=== PATIENT | female | born 1990 | race Caucasian/White ===

== ENCOUNTER 2018-05-01 14:28 | Inpatient (IN) ==
--- NOTE | 2018-05-01 14:55 | Urology History & Physical ---
Date of Encounter: 05/01/18 Time of Encounter: 14:52 Assessment and Plan (1) Right ureteral stone Current Visit: Yes Status: Acute Patient brought in for admission to the hospital secondary to low blood pressure , fever and pain control. Patient will be taken urgently to the operating room for cystoscopy and right ureteral stent placement with possible removal of right distal ureteral stone. We will start broad-spectrum anabolic's and send blood cultures. (2) Sepsis associated hypotension Current Visit: Yes Status: Acute Start IV fluids. Blood cultures broad-spectrum antibiotics.. History of Present Illness Chief complaint: right flank pain and fever HPI: Ms. Caldera is a 28 year old female who was in the emergency department 3 days ago secondary to severe right-sided flank pain. Patient was discharged home. She arrived to the urology office today secondary to severe right-sided flank pain. Patient was found to have low blood pressure as well as tachycardia as well as a fever. Patient with nausea without vomiting. Past Med Surg Social Fam HX - Past Medical History Medical history: kidney stones Additional medical history: kidney stones Psychiatric history: no psych history - Social History Smoking Status: Former smoker Smokeless Tobacco Status: No Alcohol use: none Drug use: none Medications and Allergies Ondansetron ODT [Zofran ODT] 4 mg SL Q6HR #10 tab.rapdis 03/12/16 [Rx] OxyCODONE/APAP 5/325 [Percocet 5/325 MG] 1 each PO Q6HR PRN #15 tablet 03/12/16 [Rx] Tamsulosin [Flomax] 0.4 mg PO DAILY #14 capsule 03/12/16 [Rx] Loratadine/Pseudophed (12 HR) [Claritin D (12HR)] 1 each PO BID #10 tab.er.12h 06/09/16 [Rx] Magic Mouthwash [Magic Mouthwash BLM] 5 ml PO QID PRN #240 ml 06/09/16 [Rx] Vit Calc,Iron,Folic [ Vitamins] 1 each PO DAILY #90 tablet 10/21 [Rx] Ketorolac [Toradol] 10 mg PO Q6HR PRN #12 tablet 04/28/18 [Rx] Ondansetron ODT [Zofran ODT] 4 mg SL Q4HR PRN #6 tab.rapdis 04/28/18 [Rx] Tamsulosin [Flomax] 0.4 mg PO DAILY #5 cap.er.24h 04/28/18 [Rx] 3 Allergy/AdvReac Type Severity Reaction Status Date / Time No Known Allergies Allergy Verified 11/02/17 18:46 Review of Systems - Constitutional chills, fever(s) - EENT Nose, mouth and throat: no dizziness - Cardiovascular no chest pain - Respiratory no cough - Gastrointestinal abdominal pain, nausea, no vomiting - Musculoskeletal back pain, no muscle weakness - Integumentary no erythema, no lesions, no swelling - Neurological weakness, no confusion, no syncope - Psychiatric no anxiety, no depression - Hematologic/Lymphatic no easy bleeding, no lymphadenopathy - Allergic/Immunologic no throat swelling, no wheezing Exam Temp 102.6 F, HR 102.6 /min, BP 82/50 mm Hg, Ht 5 ft 0 in, Wt 91 lbs, BMI 17.77 Index, Oxygen sat % 98 %, Pain scale 10 1-10. General/Neuological: alert and oriented x 3 Eyes: normal pupils, non-icteric Neck: no lymphadenopathy noted, supple to touch Cardiovascular: RRR, no murmurs Respiratory: normal respiratory effort, clear bilaterally ABD: soft, nontender, no masses palpated, good bowel sounds Back: no pain on percussion bilaterally Skin: no rashes noted Musculoskeletal: normal gait, FROMx4 Urology Results - Labs All other labs normal. - Imaging CT scan - abdomen: image reviewed CT scan - pelvis: image reviewed (Image reviewed which revealed distal right 3- 4 mm ureteral stone)
[2018-05-01] MEDS ORDERED: *HR* FentaNYL (PF) 100 MCG/2 ML VIAL ONE (15:15)
[2018-05-01] MEDS ORDERED: *HR* Midazolam HCl 2 MG/2 ML VIAL ONE (15:16)
[2018-05-01] MEDS ORDERED: Ondansetron 4 MG/2 ML VIAL ONE (15:16)
[2018-05-01] MEDS ORDERED: Lidocaine -MPF 2% 2 ML VIAL ONE (15:16)
[2018-05-01] MEDS ORDERED: *HR* Propofol 200 MG/20 ML VIAL IVP ONE (15:16)
[2018-05-01] MEDS ORDERED: Dexamethasone 4 MG/ML VIAL ONE (15:16)
--- NOTE | 2018-05-01 15:39 | Anesthesia Evaluation PreOp ---
Date of Encounter: 05/01/18 Time of Encounter: 15:35 - Past History Planned Operation: right uteroscopic stone exttraction Cardiac History: Denies any Significant Hx Pulmonary History: Denies Any Significant HX CUSTOMER ENGINEER History: Denies Any Significant HX Other Medical History: Denies Any Significant HX, Renal, Other (anemia) Anesthesia History: No Prior Anesthetic Complications : No Test: Negative Alcohol Use: none Drug use: none Medications and Allergies Ondansetron ODT [Zofran ODT] 4 mg SL Q6HR #10 tab.rapdis 03/12/16 [Rx] Vit Calc,Iron,Folic [ Vitamins] 1 each PO DAILY #90 tablet 10/21 [Rx] Ketorolac [Toradol] 10 mg PO Q6HR PRN #12 tablet 04/28/18 [Rx] Tamsulosin [Flomax] 0.4 mg PO DAILY #5 cap.er.24h 04/28/18 [Rx] 3 Allergy/AdvReac Type Severity Reaction Status Date / Time No Known Allergies Allergy Verified 11/02/17 18:46 - Meds/Allergy Pre-op Review Medications Reviewed: Yes Allergies Reviewed: No Beta Blockers on Current Med List: No Anesthesia Exam Vital Signs - Last 8 Hours Temp Pulse Resp BP Pulse Ox 05/01/18 15:02 97.8 F 107 14 103/71 100 Intake and Output 04/30/18 05/01/18 05/01/18 23:59 07:59 15:59 Intake Total 0 / 0 Output Total 0 / 0 Balance 0 / 0 Intake: Oral 0 / 0 Output: Urine 0 / 0 Other: Weight 41.558 kg Patient Weight 05/01/18 23:59 Weight 41.558 kg Height: 1.52m Weight: 41kg NPO (# of Hours): >8hrs Pain Scale: 5 Pain Scale Used: Numeric (1 - 10) - HEENT Pupil (Motor): Pupils equal Mallampati: II Teeth: Normal Oral Opening: Greater than 3 - CUSTOMER ENGINEER LOC: Oriented CUSTOMER ENGINEER Motor: Normal RUE, Normal LUE, Normal RLE, Normal LLE, Normal Face CUSTOMER ENGINEER Sensory: Normal: RUE, LUE, RLE, LLE, Face - Cardiac Rhythm: Regular - Pulmonary Breath Sounds: left Clear Respiratory Effort: Symmetrical Anesthesia Assess/Plan ASA Score: 2 Modified Lurdes Scale for Level of Consciousness: Cooperative, oriented, and tranquil Anesthetic Plan: General Autologous Blood: No Monitoring Plan: Standard Monitors Recovery Plan: PACU
[2018-05-01] MEDS ORDERED: *HR* OxyCODONE/APAP 5/325 TABLET PO PRN (15:44)
[2018-05-01] MEDS ORDERED: *HR* Promethazine 25 MG/ML VIAL IVP PRN ×2 (15:44→17:04)
[2018-05-01] MEDS ORDERED: cefTRIAXone 1,000 MG in Water for inj. (sterile) 20 ML 10 ML IVP ONE (16:00)
[2018-05-01] MEDS ORDERED: *HR* Morphine 10 MG/ML VIAL ONE (16:13)
[2018-05-01] MEDS ORDERED: Ringers Solution, Lactated 1,000 ML ONE (16:24)
[2018-05-01] MEDS ORDERED: Acetaminophen IV 1,000 MG/100 ML INFUS..BTL IVPB ONE (16:25)
--- NOTE | 2018-05-01 16:32 | Operative Note ---
Date of procedure: 05/01/18 Pre-op diagnosis: right distal ureteral stone Post-op diagnosis: other (no stone found.) Procedure: Right ureteroscopy and right 4.8 x 26 cm ureteral stent placement Anesthesia: VIOLETAA Surgeon: Roque Barrera Was there an phlebotomist medical lab assistant present: No Estimated blood loss (cc): 0 Specimen: none Condition: stable Disposition: PACU Procedure in Detail: Patient was prepped and draped in normal sterile fashion. Timeout procedure performed. I then inserted the semirigid ureteroscope into the patient's bladder. I attempted to cannulate the right ureteral orifice which was unsuccessful. I then placed a sensor wire through this into the right kidney using fluoroscopy. I then dilated the distal ureter using a 8/10 dilation sheath. I then placed the semirigid ureteroscope back into the patient's bladder and was able to visualize the entire right ureter with no stones seen. I then placed a 4.8 x 26 cm stent with good curl seen in the right kidney and in the bladder. Bladder was drained and procedure was ended.
--- NOTE | 2018-05-01 16:53 | Anesthesia Evaluation Post Op ---
Date of Encounter: 05/01/18 Time of Encounter: 16:53 - Vital Signs Vital Signs: Vital Signs/O2 Sat/Glucose, Most Recent Temp Pulse Resp BP Pulse Ox 102.4 F H 90 16 97/60 100 05/01/18 16:50 05/01/18 16:50 05/01/18 16:50 05/01/18 16:50 05/01/18 16:50 - Lungs Lungs: Clear Ascult./Percussion - Airway Airway: Non-obstructed - Cardiovascular Regular Rate, Baseline Rhythm - Mental Status Mental Status: Alert & Oriented, Answers Appropriately - Pain Pain Scale: 0 Pain Scale used: Numeric (1 - 10) - Nausea Vomiting Nausea Vomiting: Not Present - Hydration Hydration: Ice chips Notes: 05/01/18 16:53 naac - Discharge PostOp Status: Transfer Patient to floor
[2018-05-01] MEDS ORDERED: Naloxone 0.4 MG/ML INJ IVP PRN (17:04)
[2018-05-01] MEDS ORDERED: *HR* OxyCODONE Immed Rel 5 MG TABLET PO PRN (17:04)
[2018-05-01] MEDS: 0.9 % Sodium Chloride 1,000 ML IVC SCH (17:47)
[2018-05-02] MEDS: *HR* HYDROcodone/Acet 5/325 mg TABLET PO PRN ×2 (00:37→13:21)
[2018-05-02] MEDS: 0.9 % Sodium Chloride 1,000 ML IVC SCH ×4 (06:10→21:45)
[2018-05-02 06:15] LABS: Hematocrit 31.9 % (35.3-44.9); Immature Granulocytes % 0.5 % (0-4); Lymphocytes # 0.6 K/mcL (0.6-4.6); Lymphocytes % 7.3 %; Mean Corpuscular HGB Conc 34.5 g/dL (31.6-35.5); Mean Corpuscular Hemoglobin 31.3 pg (28.0-33.3); Mean Corpuscular Volume 90.9 fL (83.0-100.0); Mean Platelet Volume 11.4 fL (9.4-12.4); Monocytes # 0.4 K/mcL (0.0-1.3); Monocytes % 5.6 %; Neutrophils # 6.5 K/mcL (1.6-8.9); Platelet Count 111 K/mcL (140-400); Red Blood Count 3.51 M/mcL (3.82-4.97); Red Cell Distribution Width 12.3 % (11.5-14.5); Segmented Neutrophils % 86.6 %
[2018-05-02 06:33] LABS: BUN/Creatinine Ratio 14 (6-26); Blood Urea Nitrogen 8 mg/dL (6-20); Calcium 8.3 mg/dL (8.6-10.3); Carbon Dioxide 23 mEq/L (23-29); Chloride 109 mEq/L (98-107); Glucose 143 mg/dL (70-105); Osmolality,Calculated 285 (280-300); Potassium 3.9 mEq/L (3.5-5.1); Sodium 137 mEq/L (136-145); eGFR For Non-African Americans > 60 (> 60)
--- NOTE | 2018-05-02 08:52 | Urology Progress Note ---
Date of Encounter: 05/02/18 Time of Encounter: 08:50 - Assessment and Plan (1) Right ureteral stone Current Visit: Yes Status: Acute Assessment and plan: Patient without evidence of stone on ureteroscopy. She is status post right ureteral stent placement. Continue with stent at this time. (2) Sepsis associated hypotension Current Visit: Yes Status: Acute Assessment and plan: We will continue with broad-spectrum antibiotics. Plan on continuing with IV Rocephin until at least blood cultures returned preliminarily. Likely discharge tomorrow morning. Progress Note Narrative: Postoperative day 1 from right ureteroscopy and right ureteral stent placement. Patient did well overnight without any fevers. Patient's labs unremarkable at this time. Patient's blood pressure has been on the lower side since surgery. This may be her baseline. Objective Initial Vital Signs Temp Pulse Resp BP Pulse Ox 97.8 F 107 14 103/71 100 05/01/18 15:02 05/01/18 15:02 05/01/18 15:02 05/01/18 15:02 05/01/18 15:02 - General physical appearance Present: well developed, well nourished - Abdomen Present: soft. Absent: tender - Integumentary Present: no rash, no abnormal pigmentation - Musculoskeletal Present: normal posture - Psychiatric Present: oriented to time, oriented to person, oriented to place - Labs 05/02/18 05:34 05/02/18 05:34 Diabetes panel 05/02/18 Range/Units 05:34 Sodium 137 (136-145) mEq/L Potassium 3.9 (3.5-5.1) mEq/L Chloride 109 H (98-107) mEq/L Carbon Dioxide 23 (23-29) mEq/L BUN 8 (6-20) mg/dL Creatinine 0.58 L (0.60-1.20) mg/dL Glucose 143 H (70-105) mg/dL Calcium 8.3 L (8.6-10.3) mg/dL Calcium panel 05/02/18 Range/Units 05:34 Calcium 8.3 L (8.6-10.3) mg/dL Pituitary panel 05/02/18 Range/Units 05:34 Sodium 137 (136-145) mEq/L Potassium 3.9 (3.5-5.1) mEq/L Chloride 109 H (98-107) mEq/L Carbon Dioxide 23 (23-29) mEq/L BUN 8 (6-20) mg/dL Creatinine 0.58 L (0.60-1.20) mg/dL Glucose 143 H (70-105) mg/dL Calcium 8.3 L (8.6-10.3) mg/dL Adrenal panel 05/02/18 Range/Units 05:34 Sodium 137 (136-145) mEq/L Potassium 3.9 (3.5-5.1) mEq/L Chloride 109 H (98-107) mEq/L Carbon Dioxide 23 (23-29) mEq/L BUN 8 (6-20) mg/dL Creatinine 0.58 L (0.60-1.20) mg/dL Glucose 143 H (70-105) mg/dL Calcium 8.3 L (8.6-10.3) mg/dL - VTE Documentation of Mechanical Device: Intermittent pneumatic compression device Consult Discharge Plan - Plan Referrals: NONE,PCP [Primary Care Provider] -
[2018-05-02] MEDS: cefTRIAXone 1,000 MG in Water for inj. (sterile) 20 ML 10 ML IVP SCH (09:04)
[2018-05-02] MEDS: FLUoxetine 20 MG CAPSULE PO SCH (09:04)
[2018-05-03] MEDS ORDERED: *HR* LORazepam 2 MG/ML VIAL IVP PRN (04:10)
[2018-05-03] MEDS ORDERED: Furosemide 20 MG/2 ML VIAL IVP ONE ×3 (04:12→18:00)
[2018-05-03] MEDS ORDERED: *HR* LORazepam 2 MG/ML VIAL ONE (04:13)
[2018-05-03] MEDS ORDERED: Isovue-370 500 ML INFUS..BTL IV ONE (04:17)
[2018-05-03] MEDS: *HR* HYDROcodone/Acet 5/325 mg TABLET PO PRN (04:21)
[2018-05-03 04:25] LABS: Basophils % 0.1 %; Eosinophils % 0.4 %; Hematocrit 34.8 % (35.3-44.9); Hemoglobin 11.9 g/dL (11.5-15.4); Immature Granulocytes % 0.8 % (0-4); Lymphocytes # 2.4 K/mcL (0.6-4.6); Lymphocytes % 23.5 %; Mean Corpuscular HGB Conc 34.2 g/dL (31.6-35.5); Mean Corpuscular Hemoglobin 31.6 pg (28.0-33.3); Mean Corpuscular Volume 92.3 fL (83.0-100.0); Mean Platelet Volume 11.4 fL (9.4-12.4); Monocytes # 0.5 K/mcL (0.0-1.3); Monocytes % 4.5 %; Neutrophils # 7.3 K/mcL (1.6-8.9); Platelet Count 154 K/mcL (140-400); Red Blood Count 3.77 M/mcL (3.82-4.97); Red Cell Distribution Width 12.6 % (11.5-14.5); Segmented Neutrophils % 70.7 %
[2018-05-03 04:51] LABS: BUN/Creatinine Ratio 11 (6-26); Blood Urea Nitrogen 7 mg/dL (6-20); Calcium 8.1 mg/dL (8.6-10.3); Carbon Dioxide 23 mEq/L (23-29); Chloride 113 mEq/L (98-107); Glucose 94 mg/dL (70-105); Osmolality,Calculated 292 (280-300); Potassium 3.9 mEq/L (3.5-5.1); Sodium 142 mEq/L (136-145); eGFR For Non-African Americans > 60 (> 60)
--- NOTE | 2018-05-03 05:07 | Event Note ---
Date of Encounter: 05/03/18 Time of Encounter: 05:00 Rapid response was called on the patient at 0405hrs. On my arrival she was notably dyspneic with labored breathing and complained of left-sided chest pain with radiation to her left shoulder. She was afebrile with normal glycemia but notably tachycardic in the 120-130s. She reports having a history of anxiety disorder and depression but stopped taking her medications because she is trying to conceive. On my assessment she was tachycardic and tachypneic with reduction of breath spounds in the right base coupled with coarse rales. Her left lung field was relatively clear. EKG performed at bedside was depictive of sinus tachycardia. She reports visual hallucinations when she previously received morphine and hydromorphone. I ordered 2mg of lorazepam for anxiolysis and escalated her oxygen therapy to non-rebreather mask as off oxygen she was in the mid to high 80s and on oxi-mask she was in the low 90s but increased when still. On my attempt to lay her supine she became more dyspneic. I administered 20mg of furosemide due to concern of pulmonary edema from this finding and on my physical exam also taking into account the aggressive fluid resuscitation received prior. Routine labs were ordered: CBC, BMP, Coags and troponin. I took her down for a chest CT w/ contrast to rule out PE. My preliminary evaluation of the CT scan showed a moderate sized right sided pleural effusion with adjacent compressive atelectasis. At this time she appears more stable. Will continue oxygen therapy and await official CT read. Will order another dose of furosemide 20mg for later this morning noting that since the 1st dose she urinated [address] on telemetry monitoring. Troponin negative.
[2018-05-03 05:29] LABS: Prothrombin Time 11.2 Seconds (9.4-12.1)
[2018-05-03 05:32] LABS: Activated Partial Thrombo Time 31.7 Seconds (26.0-36.0)
[2018-05-03] MEDS ORDERED: Ondansetron 4 MG/2 ML VIAL IVP PRN (05:41)
[2018-05-03] MEDS: 0.9 % Sodium Chloride 1,000 ML IVC SCH ×2 (08:56→09:00)
--- NOTE | 2018-05-03 08:56 | Urology Progress Note ---
Date of Encounter: 05/03/18 Time of Encounter: 08:54 - Assessment and Plan (1) Right ureteral stone Current Visit: Yes Status: Acute (2) Sepsis associated hypotension Current Visit: Yes Status: Acute Assessment and plan: Lab stable. Pulmonary status per hospitalist team. Progress Note Narrative: Patient seen this am. Patient had episode of shortness of breath with tachycardia last night. CT PE protocol was performed which showed pleural effusion. Patient was also giving a anxiolytic. She appears mildly confused this morning. She is on a nonrebreather. Saturations have improved as well as tachycardia has improved. Patient's labs unremarkable. Patient was given IV Lasix which has resulted in her voiding multiple times. Objective Initial Vital Signs Temp Pulse Resp BP Pulse Ox 97.8 F 107 14 103/71 100 05/01/18 15:02 05/01/18 15:02 05/01/18 15:02 05/01/18 15:02 05/01/18 15:02 - General physical appearance Present: well developed, well nourished, other (slightly confused) - Respiratory Present: normal respiratory effort - Abdomen Present: soft. Absent: tender - Integumentary Present: no rash, no abnormal pigmentation - Labs 05/03/18 04:03 05/03/18 04:14 Diabetes panel 05/03/18 Range/Units 04:14 Sodium 142 (136-145) mEq/L Potassium 3.9 (3.5-5.1) mEq/L Chloride 113 H (98-107) mEq/L Carbon Dioxide 23 (23-29) mEq/L BUN 7 (6-20) mg/dL Creatinine 0.63 (0.60-1.20) mg/dL Glucose 94 (70-105) mg/dL Calcium 8.1 L (8.6-10.3) mg/dL Calcium panel 05/03/18 Range/Units 04:14 Calcium 8.1 L (8.6-10.3) mg/dL Pituitary panel 05/03/18 Range/Units 04:14 Sodium 142 (136-145) mEq/L Potassium 3.9 (3.5-5.1) mEq/L Chloride 113 H (98-107) mEq/L Carbon Dioxide 23 (23-29) mEq/L BUN 7 (6-20) mg/dL Creatinine 0.63 (0.60-1.20) mg/dL Glucose 94 (70-105) mg/dL Calcium 8.1 L (8.6-10.3) mg/dL Adrenal panel 05/03/18 Range/Units 04:14 Sodium 142 (136-145) mEq/L Potassium 3.9 (3.5-5.1) mEq/L Chloride 113 H (98-107) mEq/L Carbon Dioxide 23 (23-29) mEq/L BUN 7 (6-20) mg/dL Creatinine 0.63 (0.60-1.20) mg/dL Glucose 94 (70-105) mg/dL Calcium 8.1 L (8.6-10.3) mg/dL - VTE Documentation of Mechanical Device: Intermittent pneumatic compression device Consult Discharge Plan - Plan Referrals: NONE,PCP [Primary Care Provider] -
[2018-05-03] MEDS: cefTRIAXone 1,000 MG in Water for inj. (sterile) 20 ML 10 ML IVP SCH (08:57)
[2018-05-03] MEDS: FLUoxetine 20 MG CAPSULE PO SCH (08:59)
--- NOTE | 2018-05-03 10:10 | Internal Medicine Consult Note ---
Date of Encounter: 05/03/18 Time of Encounter: 10:03 - Assessment and plan (1) Respiratory distress Current Visit: Yes Status: Acute Assessment and plan: Patient appears fluid overloaded on exam and CTA showed interstitial edema with moderate right pleural effusion. She required Ativan due to anxiety that was further worsening tachypnea. Currently she is in no acute distress. Hold IV fluids Give an additional dose of IV Lasix tonight at 18:00 - BP appears at baseline she will be able to tolerate a dose today with close monitoring. Supplemental O2 as needed Follow up ABG Will transfer to more acute floor if needed. Incentive spirometry. (2) Chest pain Current Visit: Yes Status: Acute Assessment and plan: Initial troponin negative. EKG at time of rapid response showed sinus tachycardia. Currently having some chest pain that could be related to her episode of respiratory distress. CTA was negative for PE or PTX. Trend another set of troponin and monitor. Continue treatment of fluid overload. Qualifiers: Chest pain type: unspecified Qualified Code(s): R07.9 - Chest pain, unspecified (3) Right flank pain Current Visit: No Status: Acute (4) Nephrolithiasis Current Visit: No Status: Acute (5) Sepsis associated hypotension Current Visit: Yes Status: Acute Assessment and plan: Continue Rocephin. There was possible pneumonia on CTA chest but history seems more consistent with fluid overload. Continue Rocephin for UTI and should cover a possible pneumonia, though less likely. Patient is currently at her baseline BP per her . I discussed with nurse that since her BP is low at normal, nursing should only obtain manual blood pressures only. - Time Spent With Patient Total time spent is greater than 50% in coordination of care (as documented) at patient's floor/unit and/or counseling patient: Internal Medicine - CN: HPI - Data of Consult Requesting Physician: Yury Guallpa - Consult Narrative History of present illness: Ms. Caldera is a 28 year old female with history of kidney stones is here for sepsis and right ureteral stone. We are consulted for respiratory distress after a rapid response. Patient has had hypotension secondary to sepsis during this admission. Two days ago she had ureteroscopy with ureteral stent placement and tolerated procedure well. This AM at 04:05 a rapid response was called because patient was dyspneic with labored breathing and left-sided chest pain that radiated to her left shoulder. She had tachycardia with HR 120-103s. She was also extremely anxious and tachypneic. She was given oxygen as O2 saturations were in high 80s due to tachypnea and she required 2 mg IV ativan. She was given 20 mg PO lasix based on her fluid overload appearance. A CTA chest was done that was negative for PE but did show moderate size right pleural effusion with bilateral interstitial edema. This also noted that infection is possibility. I evaluated patient at bedside, her aunt is present in room. History obtained from aunt and nurse. Limited history from patient as she is somnolent from Ativan. The patient is able to verbalize to me that she has shortness of breath with chest pain. She denies fevers/chills, n/v, diarrhea. I spoke to over the phone and he states at home her BP low usually 80-90s/50s. Manual BP and vitals at bedside showed BP 92/58 with HR within normal limits. Past Med Surg Social Fam HX - Past Medical History Medical history: kidney stones Additional medical history: anemia, kidney stones Psychiatric history: no psych history - Past Surgical History Additional surgical history: tonsils removed - Social History Smoking Status: Never smoker Smokeless Tobacco Status: No Alcohol use: none Drug use: none Review of systems: Limited due to somnolence. See HPI. Internal Medicine - CN: Meds Ondansetron ODT [Zofran ODT] 4 mg SL Q6HR #10 tab.rapdis 03/12/16 [Rx] Vit Calc,Iron,Folic [ Vitamins] 1 each PO DAILY #90 tablet 10/21 [Rx] Ketorolac [Toradol] 10 mg PO Q6HR PRN #12 tablet 04/28/18 [Rx] Tamsulosin [Flomax] 0.4 mg PO DAILY #5 cap.er.24h 04/28/18 [Rx] FLUoxetine HCl [PROzac] 20 mg PO DAILY 05/01/18 [History] Ferrous Sulfate [Iron] 325 mg PO DAILY 05/01/18 [History] Medroxyprogesterone Acetate [DEPO-Provera] 150 mg IM Q3M 05/01/18 [History] Omeprazole [PriLOSEC] 40 mg PO DAILY 05/01/18 [History] 3 Allergy/AdvReac Type Severity Reaction Status Date / Time No Known Allergies Allergy Verified 11/02/17 18:46 Hospitalist - CN: Exam - Constitutional Vitals: Temp Pulse Resp BP Pulse Ox 98.7 F 74 16 92/58 100 05/03/18 09:00 05/03/18 09:47 05/03/18 09:00 05/03/18 09:47 05/03/18 09:00 General appearance IM: Present: A&O X 3 Exam: NAD, somnolent. - Head Head exam: Present: atraumatic, normal inspection - ENT ENT exam: Present: mucous membranes moist - Neck Neck exam general surgery: Present: full ROM. Absent: lymphadenopathy - Respiratory Respiratory exam: Present: decreased breath sounds, rales - Cardiovascular Cardiovascular exam IM: Present: RRR - GI/Abdominal GI/Abdominal exam IM: Present: normal bowel sounds, soft. Absent: guarding, rebound, rigid, tenderness - Extremities Exam Extremities exam IM: Absent: joint swelling, pedal edema - Neurological Exam Neurological exam: Present: CN II-XII intact Additional comments: Somnolent, but cooperative with exam. No focal deficits. - Skin Skin exam IM: Present: dry, warm Internal Medicine - CN: Reslt - Labs CBC & Chem 7: 05/03/18 04:03 05/03/18 04:14 Labs: Short CBC 05/03/18 Range/Units 04:03 WBC 10.4 (4.3-11.1) K/mcL Hgb 11.9 (11.5-15.4) g/dL Hct 34.8 L (35.3-44.9) % Plt Count 154 (140-400) K/mcL Neutrophils # 7.3 (1.6-8.9) K/mcL BMP 05/03/18 04:14 Sodium 142 Potassium 3.9 Chloride 113 H Carbon Dioxide 23 BUN 7 Creatinine 0.63 Glucose 94 Calcium 8.1 L Cardiac Enzymes 05/03/18 Range/Units 04:03 Troponin I < 0.03 (< 0.04) ng/mL - ABG Interpretation ABG results: PT/INR, D-dimer PT 11.2 Seconds (9.4-12.1) 05/03/18 05:11 - Impressions Impressions Chest CTA 05/03/18 04:17 IMPRESSION: No evidence of pulmonary embolism. Moderate-sized right pleural effusion. There is suspected bilateral interstitial edema and mild edema within the right lung. Infection is a possibility. D/ / 05/03/2018 07:50:12 Hernesto Whitlock MD / yoanna Interpreting Provider: Hernesto Whitlock MD Consult Discharge Plan - Plan Referrals: NONE,PCP [Primary Care Provider] -
--- NOTE | 2018-05-03 16:40 | Event Note ---
Date of Encounter: 05/03/18 Time of Encounter: 16:39 Patient seen this afternoon. Patient still feeling weak and drowsy likely from side effects from Ativan. seems angry regarding the care the patient has received. I tried to explain to the family regarding the concerns. All concerns seemed to be answered.
[2018-05-03] MEDS ORDERED: Furosemide 40 MG/4 ML VIAL IVP ONE (18:00)
[2018-05-04 05:41] VITALS: BP 92/62
[2018-05-04] MEDS: FLUoxetine 20 MG CAPSULE PO SCH (09:20)
[2018-05-04] MEDS: cefTRIAXone 1,000 MG in Water for inj. (sterile) 20 ML 10 ML IVP SCH (09:20)
--- NOTE | 2018-05-04 09:20 | Discharge Summary ---
Orders not resulted at time of discharge: Pending orders 05/01/18 15:43 Culture,Blood [BC] Stat 05/04/18 07:40 UA w. reflex culture [Urinalysis Reflex Cult & Micro] [URIN] Stat Date of Encounter: 05/04/18 Time of Encounter: :18 - Discharge Diagnosis (1) Right ureteral stone Priority: Primary Status: Acute (2) Sepsis associated hypotension Priority: Secondary Status: Acute - Hospital Course Hospital course: Ms. Caldera is a 28 year old female who was seen in the urology office on Sunday. Patient was admitted directly to the hospital. She was taken urgently to the operating room where she underwent a right ureteroscopy and right ureteral stent placement. Patient did well initially and on postoperative day #2 night she developed acute shortness of breath. Rapid response was then called. She was found to have a moderate size pleural effusion. She was given a anxiolytic and IV Lasix. This helped her shortness of breath. Patient then did well the night prior to discharge. No shortness of breath. No chest pain. Time spent discussing smoking cessation with patient: 3 to 10 minutes - Time Spent with Patient Total time spent providing and/or coordinating discharge services: Greater than 30 minutes Procedures and tests throughout hospitalization: Right ureteroscopy and ureteral stent placement on 05/04/18 Labs on day of discharge: Labs from last 24 hours 05/03/18 05/03/18 10:44 04:07 POC Glucose 79 Troponin I < 0.03 Preliminary micro results at discharge 05/01/18 15:43 Blood Culture - Preliminary Peripheral Venipuncture Culture is incubating and being continuously monitored for growth. Final report to follow. 05/01/18 15:43 Blood Culture - Preliminary Peripheral Venipuncture Culture is incubating and being continuously monitored for growth. Final report to follow. - Impressions ITS Impressions Fluoroscopy 05/01/18 16:00 IMPRESSION: Intraprocedural fluoroscopic spot images as above. See separate procedure report for more information. D/ / Pk Reid MD / Pk Reid MD Interpreting Provider: Pk Reid MD X-Ray 05/01/18 16:00 IMPRESSION: Intraprocedural fluoroscopic spot images as above. See separate procedure report for more information. D/ / Pk Reid MD / Pk Reid MD Interpreting Provider: Pk Reid MD Chest CTA 05/03/18 04:17 IMPRESSION: No evidence of pulmonary embolism. Moderate-sized right pleural effusion. There is suspected bilateral interstitial edema and mild edema within the right lung. Infection is a possibility. D/ / 05/03/2018 07:50:12 Hernesto Whitlock MD / yoanna Interpreting Provider: Hernesto Whitlock MD - Discharge Medications Prescriptions: Oxybutynin [Ditropan] 5 mg PO TID PRN #30 tablet PRN Reason: bladder spasms Home Medications: Ondansetron ODT [Zofran ODT] 4 mg SL Q6HR #10 tab.rapdis 03/12/16 [Rx] Vit Calc,Iron,Folic [ Vitamins] 1 each PO DAILY #90 tablet 10/21 [Rx] Ketorolac [Toradol] 10 mg PO Q6HR PRN #12 tablet 04/28/18 [Rx] Tamsulosin [Flomax] 0.4 mg PO DAILY #5 cap.er.24h 04/28/18 [Rx] FLUoxetine HCl [Prozac] 20 mg PO DAILY 05/01/18 [History] Ferrous Sulfate [Iron] 325 mg PO DAILY 05/01/18 [History] Medroxyprogesterone Acetate [Depo-Provera] 150 mg IM Q3M 05/01/18 [History] Omeprazole [PriLOSEC] 40 mg PO DAILY 05/01/18 [History] Oxybutynin [Ditropan] 5 mg PO TID PRN #30 tablet 05/04/18 [Rx] Allergies/Adverse Reactions: 3 Allergy/AdvReac Type Severity Reaction Status Date / Time No Known Allergies Allergy Verified 11/02/17 18:46 Date of admission: 08/29/18 14:43 Primary care physician: PCP NONE Consults: 05/03/18 07:14 Consult to Hospitalist [CONS] Routine Consulting Provider: Hospitalist Lory Reason for Consult: med managment pleural effusion/sob Call Completed: Yes Discharging clinician: Roque Barrera Anticipated date of discharge: 05/04/18 Exam Initial Vital Signs Temp Pulse Resp BP Pulse Ox 97.8 F 107 14 103/71 100 05/01/18 15:02 05/01/18 15:02 05/01/18 15:02 05/01/18 15:02 05/01/18 15:02 General/Neuological: alert and oriented x 3 Eyes: normal pupils, non-icteric Neck: no lymphadenopathy noted, supple to touch ABD: soft, nontender, no masses palpated, good bowel sounds Back: no pain on percussion bilaterally Skin: no rashes noted Musculoskeletal: normal gait, FROMx4 - Patient Status Disposition: Home, Self-Care Condition: Good Functional capacity at discharge: independent ambulation Overall status at discharge: patient is progressing back to baseline - Discharge Instructions Follow Up With: NONE,PCP [Primary Care Provider] - Roque Barrera MD [Partnered Physician] - (1-2 weeks ) - Diet and Activity Activity: increase activity as tolerated Diet: advance to your usual diet - VTE Documentation of Mechanical Device: Intermittent pneumatic compression device
[2018-05-04 09:37] LABS: Bilirubin,Urine Negative (Negative); Blood,Urine Large (Negative); Clarity,Urine Cloudy (Clear); Color,Urine Dark Yellow (Yellow); Glucose,Urine (UA) Normal (Normal); Ketones,Urine Negative (Negative); Leukocyte Esterase,Urine Moderate (Negative); Nitrite,Urine Negative (Negative); Protein,Urine 100 mg/dL (Neg-Trace); Specific Gravity,Urine 1.009 (1.010-1.025); Urobilinogen,Urine Normal (Normal)
[2018-05-04 09:40] LABS: Bacteria,Urine None Seen per hpf (None-Few); RBC,Urine TNTC per hpf (0-3); Squamous Epithelial Cell,Urine Many per lpf (None-Few); WBC,Urine 30-50 per hpf (0-3)
--- NOTE | 2018-05-04 10:23 | Internal Med Progress Note ---
Hospitalist Progress Note - Encounter Date of Encounter: 05/04/18 Time of Encounter: 08:00 - Subjective Interval History: patient was seen and examiend at bedside. has no complaints, no overnight events. her SOB has resolved. denies cough, CP, N/v/D, chest pain palpitations, leg edema is tolerating PO diet - Exam Vitals: Temp Pulse Resp BP Pulse Ox 98.4 F 68 15 92/62 96 05/04/18 05:39 05/04/18 05:39 05/04/18 05:39 05/04/18 05:39 05/04/18 05:39 Exam: General: Patient is alert, oriented, no acute distress, thin Head: atraumatic, normocephalic, Eye: normal appearance, PERRL, no scleral icterus, no conjunctival injection ENT: mucous membranes moist, normal external ear exam Neck: normal inspection, trachea midline, full ROM, no carotid bruits Chest: normal inspection, symmetric chest rise Respiratory: Good respiratory effort. Bilateral breath sounds are clear without wheezing, crackles, or rhonchi. Cardiovascular: Regular rate and rhythm. s1 and s2 No clicks, rubs, gallops, or murmors. Abdomen: Bowel sounds present normoactive x-4 quadrants. Abdomen is soft, nondistended. no Epigastric tenderness. No guarding or rebound. No organomegaly noted, obese musculoskeletal: Spontaneously moving all extremities. no edema, no calf tenderness Skin: warm, dry, intact. Neuro: Alert and oriented x4. Sensation light touch intact. Cranial nerves 2- 12 is intact. Not aphasic, gait is steady, rapid hand movements intact, finger- to-nose intact, Psych: Patient's affect is normal - Assessment and Plan (1) Nephrolithiasis Status: Acute Assessment and Plan: s/p OR cystoscopy and right ureteral stent placement with possible removal of right distal ureteral stone. urology on board will follow recommendations (2) Right flank pain Status: Acute Assessment and Plan: secondary to above plan as per above (3) Sepsis associated hypotension Status: Acute Assessment and Plan: was tachycardic, hypoxic, tachypnic - now resolved BP stable on Rocephin. bcx remain negative prelim (4) Respiratory distress Status: Acute Assessment and Plan: secondary to volume overload now resolved. ruled out PE CTA Moderate-sized right pleural effusion. There is suspected bilateral interstitial edema and mild edema within the right lung. Infection is a possibility. (5) Chest pain Status: Acute Assessment and Plan: troponin x2 negative EKG at time of rapid response showed sinus tachycardia. CTA was negative for PE or PTX. chest pain resolved after treatment of volume overload DVT Prophylaxis: ambulating will order heparic SC - Time Spent with Patient Total time spent is greater than 50% in coordination of care (as documented) at patient's floor/unit and/or counseling patient: Plan of Care Discussed with: patient Internal Medicine: Result - Labs CBC & Chem 7: 05/03/18 04:03 05/03/18 04:14 Labs: Cardiac Enzymes 05/03/18 Range/Units 10:44 Troponin I < 0.03 (< 0.04) ng/mL Urine 05/04/18 Range/Units 09:10 Urine Color Dark Yellow (Yellow) Urine Clarity Cloudy A (Clear) Urine pH 7.0 (5.0-8.0) pH Units Ur Specific [place] 1.009 L (1.010-1.025) Urine Protein 100 H (Neg-Trace) mg/dL Urine Glucose (UA) Normal (Normal) mg/dL - ABG Interpretation ABG results: PT/INR, D-dimer PT 11.2 Seconds (9.4-12.1) 05/03/18 05:11 - Impressions Impressions Chest CTA 05/03/18 04:17 IMPRESSION: No evidence of pulmonary embolism. Moderate-sized right pleural effusion. There is suspected bilateral interstitial edema and mild edema within the right lung. Infection is a possibility. D/ / 05/03/2018 07:50:12 Hernesot Whitlock MD / yoanna Interpreting Provider: Hernesto Whitlock MD - VTE Documentation of Mechanical Device: Intermittent pneumatic compression device Consult Discharge Plan - Plan Instructions: Urethral Stent Placement (DC) Referrals: Roque Barrera MD [Partnered Physician] - (1-2 weeks ) NONE,PCP [Primary Care Provider] - Prescriptions: Oxybutynin [Ditropan] 5 mg PO TID PRN #30 tablet PRN Reason: bladder spasms (5) Chest pain Qualifiers: Chest pain type: unspecified Qualified Code(s): R07.9 - Chest pain, unspecified
--- NOTE | 2018-05-05 16:07 | Electrocardiograph Report ---
[address] [address] Test Date: 2018-05-03 Pat Name: Elyssa Caldera Department: 115 Room: 3A Gender: F [employer] Supervisor: : 1990 Requested By: [id number] Order Number: [id number] Reading MD: Fahad Carter Measurements Intervals [place] Rate: 123 P: 72 KS: 136 QRS: 89 QRSD: 85 T: 40 QT: 287 QTc: 360 Interpretive Statements SINUS TACHYCARDIA LOW QRS VOLTAGE IN PRECORDIAL LEADS POSSIBLE RIGHT VENTRICULAR CONDUCTION DELAY NONSPECIFIC ST & T-WAVE ABNORMALITY ABNORMAL RHYTHM ECG Electronically Signed On 05-05-2018 16:06:03 EDT by Fahad Carter
== END 2018-05-04 09:47 | disposition home or self-care (01) | DRG 720 ==
LOC: 3ANU 14:43 → SUATTDRO 14:43 → 3ANU 21:05
PROVIDERS: ADMIT Urology; ATTEND Internal Medicine

== ENCOUNTER → 2018-12-03 01:05 | Observation (INO) ==
--- NOTE | 2018-12-03 00:12 | OB/GYN Progress Note ---
Date of Encounter: 12/03/18 Time of Encounter: 00:07 - Assessment and Plan (1) 31 weeks gestation of Current Visit: Yes Status: Acute NST reactive Discussed transfer with Dr Anabella Kaufman at [facility]; accepted transfer at 0015 Recommended starting Magnesium for neuroprotection, PCN, and rescue BMZ. Patient stable for transfer at this time. Discharge via ambulance to [facility]. POC per consult with Dr Ruiz (2) labor in third trimester Current Visit: Yes Status: Acute Qualifiers: labor delivery status: without delivery Qualified Code(s): O60.03 - labor without delivery, third trimester (3) Dichorionic diamniotic twin Current Visit: Yes Status: Acute Qualifiers: Trimester: third trimester Qualified Code(s): O30.043 - Twin , dichorionic/diamniotic, third trimester (4) NST (non-stress test) reactive Current Visit: Yes Status: Acute Subjective - Subjective Principal diagnosis: Contractions Interval history: Ms Caldera is a at 31 weeks and 0 days that presents to triage with c/o pelvic pressure and contractions in her back since 1830 this evening which have progressively gotten worse. She has a history of labor and was transferred to [facility]; she received steroids at that time and was discharged at 1cm dilated. She has been on modified bed rest. She is seen by Dr Arcos for her care. She is with Di/Di twins and is being co-managed by Dr Lia morrow and [facility]. Antepartum ROS: movement normal, contractions, no vaginal bleeding Objective - Vital Signs Vital Signs: Intake and Output 12/02/18 12/02/18 12/03/18 15:59 23:59 07:59 Other: Weight 58.23 kg - Exam FHR: auscultation normal, category 1 FHR comments: FHTs Baby A baseline 130-135 Baby B baseline 130-135 Cat 1 tracing Contractions not picking up due to Baby B being very high in abdomen; patient re ports every 7 minutes Abdomen: Present: normal appearance, soft, gravid Uterus: Present: normal. Absent: firm, tenderness Cervical dilation: 3 Cervix effacement: 70 station: -1 Comments: SVE - membranes palpate intact.
[~2018-12-03 01:05] MED LIST: Betamethasone Acet/SodPhos 6 MG/ML MDV IM SCH; Magnesium Sulfate 20 gm/500mL 20 GM/500 ML IV.SOLN IVC SCH; Penicillin G Potassium 5,000,000 UNIT in 0.9 % Sodium Chloride Mini Bag 100 ML IVPB ONE; Ringers Solution, Lactated 1,000 ML ONE
== END | disposition other institution (70) ==
LOC: 1NENULAB
PROVIDERS: ADMIT Advanced Practice Midwife; ATTEND Advanced Practice Midwife

== ENCOUNTER → 2018-12-04 08:10 | Observation (INO) ==
[2018-12-04 07:25] LABS: Hematocrit 28.1 % (35.3-44.9); Hemoglobin 9.7 g/dL (11.5-15.4); Mean Corpuscular HGB Conc 34.5 g/dL (31.6-35.5); Mean Corpuscular Hemoglobin 31.1 pg (28.0-33.3); Mean Corpuscular Volume 90.1 fL (83.0-100.0); Mean Platelet Volume 10.8 fL (9.4-12.4); Platelet Count 257 K/mcL (140-400); Red Blood Count 3.12 M/mcL (3.82-4.97); Red Cell Distribution Width 13.1 % (11.5-14.5)
[2018-12-04 07:35] VITALS: BP 112/67
[2018-12-04 07:49] LABS: Lymphocytes # 1.5 K/mcL (0.6-4.6); Monocytes # 0.5 K/mcL (0.0-1.3); Neutrophils # 23.1 K/mcL (1.6-8.9); Platelet Estimate Normal (Normal)
[~2018-12-04 08:10] MED LIST changes: -Betamethasone Acet/SodPhos 6 MG/ML MDV IM SCH; +Indomethacin 25 MG CAPSULE PO ONE; +Magnesium Sulfate 6 GM in 0.9 % Sodium Chloride 100 ML IVPB ONE
--- NOTE | 2018-12-04 08:48 | OB/GYN Progress Note ---
Date of Encounter: 12/04/18 Time of Encounter: 06:00 - Assessment and Plan (1) SROM (spontaneous rupture of membranes) Current Visit: Yes Status: Acute Dr. Malik consulted for rupture of membranes at 31 weeks-advised to contact [facility] for immediate transfer Spoke with [facility] fellow who accepts transfer for rupture of membranes Patient to be transferred for [facility] for further management (2) 31 weeks gestation of Current Visit: Yes Status: Acute (3) Dichorionic diamniotic twin Current Visit: Yes Status: Acute Qualifiers: Trimester: third trimester Qualified Code(s): O30.043 - Twin , dichorionic/diamniotic, third trimester (4) labor in third trimester Current Visit: Yes Status: Acute Qualifiers: labor delivery status: without delivery Qualified Code(s): O60.03 - labor without delivery, third trimester Subjective - Subjective Principal diagnosis: PPROM with twins Interval history: Patient presents to L&D with complaint of leakage of fluid starting at 0415 this morning. She endorses good movement and denies vaginal bleeding. She does complain of some contractions. She reports she has received 2 separate rounds of 2 doses of betamethasone. She was recently at [facility] yesterday for labor admission and declined to stay. Antepartum ROS: new complaints, loss of fluid, movement normal, contractions, no vaginal bleeding Objective - Vital Signs Vital Signs: Vital Signs Temp Pulse Resp BP 12/04/18 07:27 98.0 F 104 16 112/67 - Exam FHR: category 1 FHR comments: Twin A: Baseline 125 Moderate variability Accelerations present 10x10 No decelerations FHR Category I Twin B: Baseline 140 Moderate variability Accelerations present 10x10 No decelerations FHR Category I Auscultation: bilateral: normal Abdomen: Present: normal appearance, soft, gravid Uterus: Present: normal, firm Cervical dilation: 3-4 Cervix effacement: 80 station: -1 - Labs Labs: Abnormal lab results WBC 25.7 K/mcL (4.3-11.1) H 12/04/18 07:00 RBC 3.12 M/mcL (3.82-4.97) L 12/04/18 07:00 Hgb 9.7 g/dL (11.5-15.4) L 12/04/18 07:00 Hct 28.1 % (35.3-44.9) L 12/04/18 07:00 Band Neutrophils % 8.0 % (0-4) H 12/04/18 07:00 Metamyelocytes % 2.0 % (0) H 12/04/18 07:00 Neutrophils # 23.1 K/mcL (1.6-8.9) H 12/04/18 07:00
== END | disposition critical access hospital (66) ==
LOC: 1NENULAB
PROVIDERS: ADMIT Advanced Practice Midwife; ATTEND Advanced Practice Midwife